=== PATIENT | male | born 1940 | race Caucasian/White ===

== ENCOUNTER → 2017-02-16 | Outpatient (CLI) | payer MEDICARE ==
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
== END | disposition home or self-care (01) ==
LOC: US 00:40 → WOUNDCARE 00:40
DX: S80.12XA Contusion of left lower leg, initial encounter (principal); E11.9 Type 2 diabetes mellitus without complications; M79.89 Other specified soft tissue disorders; I48.91 Unspecified atrial fibrillation; Z79.01 Long term (current) use of anticoagulants; Z87.891 Personal history of nicotine dependence; X58.XXXA Exposure to other specified factors, initial encounter; Y93.89 Activity, other specified; Y92.89 Other specified places as the place of occurrence of the external cause; Y99.8 Other external cause status

== ENCOUNTER 2017-07-02 01:21 | Inpatient (IN) | payer MEDICARE ==
[~2017-07-02] VITALS: Ht 190.5 cm; Wt 99.9 kg
[2017-07-02] VITALS (7 sets, daily range): BP systolic 86–162; BP diastolic 52–84
[2017-07-02 02:04] LABS: BASO # 0.1 10*3/uL (0.0-0.1); BASO % 0.8 % (0.0-1.0); EOS # 0.6 10*3/uL (0.0-0.4); EOS % 4.7 % (1.0-4.0); HEMATOCRIT 38.3 % (42.0-52.0); HEMOGLOBIN 12.6 g/dl (14.0-18.0); LYMPH # 2.4 10*3/uL (1.3-4.4); LYMPH % 18.9 % (27.0-41.0); MEAN CELL VOLUME 90.1 fl (80.0-94.0); MEAN CORPUSCULAR HGB 29.6 pg (27.0-31.0); MEAN CORPUSCULAR HGB CONC 32.9 g/dl (33.0-37.0); MEAN PLATELET VOLUME 9.2 fl (9.6-12.3); MONO # 1.3 10*3/uL (0.1-1.0); MONO % 10.2 % (3.0-9.0); NEUT # 8.2 10*3/uL (2.3-7.9); NEUT % 64.8 % (47.0-73.0); PLATELET COUNT AUTOMATED 267 10*3/uL (130-400); RED BLOOD COUNT 4.25 10*6/uL (4.50-5.90); RED CELL DISTRI WIDTH 14.2 % (0-14.5); WHITE BLOOD COUNT 12.7 10*3/uL (4.8-10.8)
[2017-07-02 02:19] LABS: ALBUMIN 3.5 gm/dl (3.1-4.5); ALKALINE PHOSPHATASE 85 U/L (45-117); BUN 21 mg/dl (7-24); CHLORIDE 110 mmol/L (98-107); CREATININE 1.18 mg/dL (0.70-1.30); POTASSIUM 3.6 mmol/L (3.5-5.1); SGOT/AST 19 IU/L (3-35); SGPT/ALT 24 U/L (12-78); SODIUM 143 mmol/L (136-145); TOTAL PROTEIN 7.5 gm/dL (6.4-8.2)
--- NOTE | 2017-07-02 03:20 | NUR ---
pt reported chest pain 2 out of 10 in left side of chest. non radiating. vss
--- NOTE | 2017-07-02 05:45 | NUR ---
A 76, admitted to , under the services of MERARI Rdz DO with a diagnosis of HYPOGLYCEMIA. Chief complaint is CONFUSION & PT. FELL AT HOME. Patient arrived via stretcher from ER. Monitor applied. Initial assessment completed. Vital signs taken and recorded. MERARI RDZ DO notified of admission to the unit. Orders received. See assessment for past medical history, medications and allergies. Patient and/or family oriented to unit. [facility]. Clothing/patient valuable form completed. MONICA IBRAHIM
[2017-07-02 05:47] LABS: BILIRUBIN NEGATIVE (NEGATIVE); BLOOD NEGATIVE (NEGATIVE); CLARITY CLEAR (CLEAR); COLOR YELLOW (YELLOW); GLUCOSE 1+ (NEGATIVE); KETONE NEGATIVE (NEGATIVE); LEUKO ESTERASE NEGATIVE (NEGATIVE); NITRITE NEGATIVE (NEGATIVE); PH 5.5 (5.0-9.0); UROBILINOGEN 0.2 E.U./dl (0.2-1.0)
[2017-07-02 05:54] LABS: RBC 0-2 rbc/hpf (0-2)
[2017-07-02] MEDS ORDERED: LEVOTHYROXINE50 MCG PO (07:54)
[2017-07-02] MEDS ORDERED: ASPIR LOW81 MG PO (07:55)
[2017-07-02] MEDS ORDERED: COREG6.25 MG PO ×2 (07:56→08:02)
[2017-07-02] MEDS ORDERED: QUINAPRIL10 M1 PO (07:56)
[2017-07-02] MEDS ORDERED: LANTUS SOL100 UNIT/1 SC ×3 (07:57→11:48)
[2017-07-02] MEDS ORDERED: HUMALOG100 UNIT/2 SQ ×3 (07:58→08:02)
[2017-07-02] MEDS ORDERED: DIGOX250 MCG PO (08:01)
[2017-07-02] MEDS ORDERED: COUMADIN7.5 M1 PO (08:04)
[2017-07-02] MEDS ORDERED: COUMADIN5 M2 PO (08:05)
[2017-07-02] MEDS ORDERED: HUMALOG100 UNIT/1 SC ×3 (11:50→11:53)
[2017-07-02 14:29] LABS: INTERNATIONAL NORM RATIO 1.9 (2.0-3.5)
--- NOTE | 2017-07-02 18:50 | NUR ---
[facility] Discharge instructions reviewed with patient/family. Patient receptive and verbalizes understanding. Follow-up care arranged. Written instructions given to patient/family. MARIELENA LEAVITT
== END 2017-07-02 18:50 | disposition home or self-care (01) | DRG 638 ==
LOC: ED 01:21 → EDHOLD 04:50 → 4E 04:59
PROVIDERS: Emergency Medicine; Family Medicine Adult Medicine; ADMIT Internal Medicine
DX: E11.649 Type 2 diabetes mellitus with hypoglycemia without coma (principal); D68.69 Other thrombophilia; E11.51 Type 2 diabetes mellitus with diabetic peripheral angiopathy without gangrene; I48.2 Chronic atrial fibrillation; E03.9 Hypothyroidism, unspecified; E78.5 Hyperlipidemia, unspecified; F10.20 Alcohol dependence, uncomplicated; I25.10 Atherosclerotic heart disease of native coronary artery without angina pectoris; Z91.018 Allergy to other foods; Z91.040 Latex allergy status; Z79.4 Long term (current) use of insulin; Z95.1 Presence of aortocoronary bypass graft; Z90.49 Acquired absence of other specified parts of digestive tract; Z83.6 Family history of other diseases of the respiratory system; Z79.82 Long term (current) use of aspirin; Z79.899 Other long term (current) drug therapy; W19.XXXA Unspecified fall, initial encounter; Y93.89 Activity, other specified; Y92.89 Other specified places as the place of occurrence of the external cause; Y99.8 Other external cause status

== ENCOUNTER 2017-12-20 19:46 | Inpatient (IN) | payer MEDICARE ==
[~2017-12-20] VITALS: Ht 190.5 cm; Wt 88.1 kg
--- NOTE | ~2017-12-20 | CON ---
[place], [place] REPORT OF CONSULTATION NAME: NORMA MAGAÑA UNIT #: [id number] ROOM: 412 DOCTOR: BHUPENDRA BRUNSON MD BIRTHDATE: [birth year] DOS: 12/21/2017 REASON FOR CONSULTATION: Bacteremia with lumbar osteomyelitis. HISTORY OF PRESENT ILLNESS: This is a 77-year-old male who presented to the ER due to a chief complaint of hypoglycemia. According to the who was at the bedside, the patient was relatively stable the whole day on the day of admission and after his dinner, he was having excessive sweating and was unresponsive. His blood glucose was low 20 and she called the EMS and the patient was able to respond minimally during all this time and after arrival to the ER with proper , he was revived. On review of his documents from [facility] [place], it was found that he had been treated with MSSA bacteremia, likely from his lumbar paraspinal abscess for 8 weeks with cefazolin 2 grams q. 8 hourly, ending on 12/10/2017 and the patient was getting this therapy through his left arm PICC line. He stayed at [place] until the completion of his therapy and then moved back to [place] on 15 of December. He was hemodynamically stable all this time. On arrival to the ER, his vitals have been stable, including his blood pressure. His labs do reveal leukocytosis of 17 on admission. Hemoglobin A1c of 9.0, elevated ESR 89. His lumbar CT spine done with contrast on 12/20/2017 shows possibility of diskitis, osteomyelitis of L3-L4 disk space. The paravertebral soft tissues within normal limits. His blood cultures on admission, one set anaerobic bottle is growing gram-positive cocci in pairs and clusters. The patient has been on vancomycin and cefepime. PAST MEDICAL HISTORY: Significant for atrial fibrillation, coronary artery disease, diabetes type 2, dyslipidemia, hypothyroidism, peripheral vascular disease. PAST SURGICAL HISTORY: Includes history of carotid endarterectomy; bilateral coronary artery stent placement; history of foot surgery, left foot; appendectomy; CABG; hand surgery and femoral popliteal bypass surgery. SOCIAL HISTORY: Former smoker, quit 20 years ago. Nonalcoholic. No illicit drug use. FAMILY HISTORY: Father had lung disease, . Mother also . ALLERGIES: NARCOTICS, does not tolerate well. HOME MEDICATIONS: Include aspirin, atorvastatin, Coreg, insulin lispro and glargine, levothyroxine, metformin and warfarin. REVIEW OF SYSTEMS: A 12-point review of systems has been done. Pertinent negative, positive has been included in HPI, rest are noncontributory. PHYSICAL EXAMINATION: [place], [place] REPORT OF CONSULTATION NAME: NORMA MAGAÑA UNIT #: [id number] ROOM: 412 DOCTOR: NANNETTE ADAMSBHUPENDRA BIRTHDATE: [birth year] VITAL SIGNS: Temperature of 97.6, pulse rate of 97, respiratory rate 18, blood pressure 128/73, oxygen saturation 99% on room air. GENERAL: The patient is alert, oriented x 3, not in acute distress. HEENT: Atraumatic, normocephalic. PERRLA, EOMI. Poor dental hygiene. No recent dental procedure done. RESPIRATORY: Air entry bilaterally equal. No wheeze or crackles. CARDIOVASCULAR: S1, S2, irregularly irregular. No murmur, rubs or gallops. ABDOMEN: Soft, nontender, nondistended. Bowel sounds present in 4 quadrants. MUSCULOSKELETAL: No back pain, no paraspinal muscle tenderness. Left knee swollen, but no fluid. Full range of motion. No tenderness. Left foot ulcer callus, healed, around 1 cm. No surrounding cellulitis. NEUROLOGIC: Grossly intact. LABS AND IMAGING: Reviewed, mentioned in HPI. ASSESSMENT: 1. Gram-positive bacteremia, likely MSSA, as seen during last admission. 2. Gram-positive bacteremia, likely source from osteomyelitis/endocarditis. PLAN: 1. At this time, discontinue vancomycin, cefepime. Continue on cefazolin 2 grams q. 8 hourly. 2. Repeat blood cultures. 3. Needs a transthoracic echo. 4. MRI of the spine with gadolinium to see if he has any spinal abscess persistently present or as it resolved. 5. The patient and the family are willing to transfer the patient to [facility] because his orthopedic care is there. Currently, I do feel that the above things can be done. His clinical exam shows more neurological deficits, may need a neurosurgical evaluation. Thank you for your consult. Yvrose Brunson MD CM:CONSTR:REPORT OF CONSULTATION 1727 12/21/17 2320 interface
[~2017-12-20 19:46] MED LIST: ASPIR LOW81 MG PO; COREG6.25 MG PO; COUMADIN5 M2 PO; COUMADIN7.5 M1 PO; DIGOX250 MCG PO; HUMALOG100 UNIT/1 SC; HUMALOG100 UNIT/2 SQ; LANTUS SOL100 UNIT/1 SC; LEVOTHYROXINE50 MCG PO; QUINAPRIL10 M1 PO
[2017-12-20 19:47] VITALS: BP 144/77
[2017-12-20] MEDS ORDERED: WARFARIN SOD5 MG PO (19:56)
[2017-12-20] MEDS ORDERED: HUMALOG100 UNIT/1 SQ (19:59)
[2017-12-20] MEDS ORDERED: METFORMIN500 MG PO (20:00)
[2017-12-20 20:29] LABS: BASO # 0.1 10*3/uL (0.0-0.1); BASO % 0.5 % (0.0-1.0); EOS # 0.5 10*3/uL (0.0-0.4); EOS % 3.1 % (1.0-4.0); HEMATOCRIT 33.7 % (42.0-52.0); HEMOGLOBIN 10.6 g/dl (14.0-18.0); LYMPH # 1.4 10*3/uL (1.3-4.4); LYMPH % 8.4 % (27.0-41.0); MEAN CELL VOLUME 89.4 fl (80.0-94.0); MEAN CORPUSCULAR HGB 28.1 pg (27.0-31.0); MEAN CORPUSCULAR HGB CONC 31.5 g/dl (33.0-37.0); MEAN PLATELET VOLUME 8.7 fl (9.6-12.3); MONO # 1.5 10*3/uL (0.1-1.0); MONO % 8.7 % (3.0-9.0); NEUT # 13.3 10*3/uL (2.3-7.9); NEUT % 78.5 % (47.0-73.0); PLATELET COUNT AUTOMATED 347 10*3/uL (130-400); RED BLOOD COUNT 3.77 10*6/uL (4.50-5.90); RED CELL DISTRI WIDTH 15.2 % (0-14.5)
[2017-12-20 20:42] VITALS: BP 135/70
[2017-12-20 20:42] LABS: INTERNATIONAL NORM RATIO 2.1 (2.0-3.5)
[2017-12-20 20:45] LABS: ALBUMIN 3.2 gm/dl (3.1-4.5); ALKALINE PHOSPHATASE 115 U/L (45-117); BUN 23 mg/dl (7-24); CHLORIDE 104 mmol/L (98-107); CREATININE 1.02 mg/dL (0.70-1.30); POTASSIUM 4.2 mmol/L (3.5-5.1); SGOT/AST 17 IU/L (3-35); SGPT/ALT 16 U/L (12-78); SODIUM 139 mmol/L (136-145); TOTAL PROTEIN 7.9 gm/dL (6.4-8.2)
[2017-12-20 20:48] LABS: TROPONIN I < 0.015 ng/ml (<0.045)
[2017-12-20 20:55] LABS: DIGOXIN 0.12 ng/ml (0.8-2.0)
[2017-12-20 21:49] VITALS: BP 134/63
[2017-12-20 22:56] VITALS: BP 128/73
[2017-12-21 00:20] VITALS: BP 140/68
[2017-12-21 01:00] VITALS: BP 129/65
[2017-12-21] MEDS ORDERED: LIPITOR10 MG PO (01:46)
[2017-12-21 03:08] LABS: BASO # 0.1 10*3/uL (0.0-0.1); BASO % 0.6 % (0.0-1.0); EOS # 0.3 10*3/uL (0.0-0.4); EOS % 3.2 % (1.0-4.0); HEMATOCRIT 31.4 % (42.0-52.0); LYMPH # 1.7 10*3/uL (1.3-4.4); LYMPH % 16.1 % (27.0-41.0); MEAN CORPUSCULAR HGB CONC 31.8 g/dl (33.0-37.0); MEAN PLATELET VOLUME 8.5 fl (9.6-12.3); MONO # 0.9 10*3/uL (0.1-1.0); MONO % 8.4 % (3.0-9.0); NEUT # 7.7 10*3/uL (2.3-7.9); NEUT % 71.1 % (47.0-73.0); PLATELET COUNT AUTOMATED 290 10*3/uL (130-400); RED BLOOD COUNT 3.57 10*6/uL (4.50-5.90); WHITE BLOOD COUNT 10.8 10*3/uL (4.8-10.8)
[2017-12-21 03:17] LABS: INTERNATIONAL NORM RATIO 2.2 (2.0-3.5)
[2017-12-21 03:25] LABS: ALKALINE PHOSPHATASE 105 U/L (45-117); CHLORIDE 105 mmol/L (98-107); CREATININE 0.97 mg/dL (0.70-1.30); PHOSPHOROUS 4.1 mg/dL (2.5-4.9); POTASSIUM 4.2 mmol/L (3.5-5.1); SODIUM 139 mmol/L (136-145)
[2017-12-21 04:19] LABS: BUN 23 mg/dl (7-24); SGOT/AST 20 IU/L (3-35); SGPT/ALT 17 U/L (12-78); TRIGLYCERIDES 68 mg/dl (<150); VLDL CHOLESTEROL 14 mg/dL (6-40)
[2017-12-21 04:28] LABS: CHOLESTEROL 87 mg/dL (<200); HDL CHOLESTEROL 37 mg/dl (40-60); LDL CHOLESTEROL 36 mg/dL (9-159)
[2017-12-21 08:00] VITALS: BP 132/60
[2017-12-21 08:54] LABS: VITAMIN D, 25-HYDROXY 23.1 ng/mL (30-100)
[2017-12-21 12:00] VITALS: BP 121/53
[2017-12-21 16:00] VITALS: BP 134/69
[2017-12-21 20:00] VITALS: BP 162/92
== END 2017-12-21 21:15 | disposition short-term general hospital (02) | DRG 872 ==
LOC: ED 19:46 → EDHOLD 20:54 → ED 20:54 → 4E 23:25 → EDHOLD 23:25 → 4E 23:38
PROVIDERS: Internal Medicine Nephrology; Student in an Organized Health Care Education/Training Program
DX: A41.9 Sepsis, unspecified organism (principal); E11.51 Type 2 diabetes mellitus with diabetic peripheral angiopathy without gangrene; E11.649 Type 2 diabetes mellitus with hypoglycemia without coma; M46.26 Osteomyelitis of vertebra, lumbar region; I48.91 Unspecified atrial fibrillation; E78.5 Hyperlipidemia, unspecified; E03.9 Hypothyroidism, unspecified; M46.40 Discitis, unspecified, site unspecified; M46.46 Discitis, unspecified, lumbar region; E11.69 Type 2 diabetes mellitus with other specified complication; I25.10 Atherosclerotic heart disease of native coronary artery without angina pectoris; Z95.5 Presence of coronary angioplasty implant and graft; Z90.49 Acquired absence of other specified parts of digestive tract; Z95.1 Presence of aortocoronary bypass graft; Z79.899 Other long term (current) drug therapy; Z87.891 Personal history of nicotine dependence; Z83.6 Family history of other diseases of the respiratory system; Z88.6 Allergy status to analgesic agent; Z79.82 Long term (current) use of aspirin

== ENCOUNTER 2018-01-09 22:36 | Inpatient (IN) | payer MEDICARE ==
[~2018-01-09] VITALS: Ht 193 cm; Wt 108.1 kg
[~2018-01-09 22:36] MED LIST changes: +HUMALOG100 UNIT/1 SQ; +LIPITOR10 MG PO; +METFORMIN500 MG PO; +WARFARIN SOD5 MG PO
[2018-01-09 22:59] VITALS: BP 156/63
[2018-01-09 23:41] LABS: BASO # 0.1 10*3/uL (0.0-0.1); BASO % 0.8 % (0.0-1.0); EOS # 0.4 10*3/uL (0.0-0.4); EOS % 3.2 % (1.0-4.0); LYMPH % 9.1 % (27.0-41.0); MEAN CORPUSCULAR HGB 28.2 pg (27.0-31.0); MEAN CORPUSCULAR HGB CONC 31.3 g/dl (33.0-37.0); MEAN PLATELET VOLUME 8.7 fl (9.6-12.3); MONO # 0.8 10*3/uL (0.1-1.0); MONO % 7.4 % (3.0-9.0); NEUT # 8.5 10*3/uL (2.3-7.9); NEUT % 79.1 % (47.0-73.0); RED BLOOD COUNT 3.37 10*6/uL (4.50-5.90); RED CELL DISTRI WIDTH 17.2 % (0-14.5); WHITE BLOOD COUNT 10.8 10*3/uL (4.8-10.8)
[2018-01-09 23:42] LABS: HEMATOCRIT 30.4 % (42.0-52.0); HEMOGLOBIN 9.5 g/dl (14.0-18.0); MEAN CELL VOLUME 90.2 fl (80.0-94.0); PLATELET COUNT AUTOMATED 340 10*3/uL (130-400)
[2018-01-10] LABS: ALBUMIN 2.7 gm/dl (3.1-4.5); ALKALINE PHOSPHATASE 97 U/L (45-117); BUN 12 mg/dl (7-24); CHLORIDE 104 mmol/L (98-107); SGOT/AST 15 IU/L (3-35); SGPT/ALT 12 U/L (12-78); SODIUM 140 mmol/L (136-145); TOTAL PROTEIN 7.2 gm/dL (6.4-8.2)
[2018-01-10 00:01] LABS: TROPONIN I < 0.015 ng/ml (<0.045)
[2018-01-10 00:22] VITALS: BP 162/72
[2018-01-10 01:00] VITALS: BP 159/66
[2018-01-10 04:26] LABS: BASO # 0.1 10*3/uL (0.0-0.1); BASO % 0.8 % (0.0-1.0); EOS # 0.6 10*3/uL (0.0-0.4); EOS % 6.3 % (1.0-4.0); HEMATOCRIT 30.7 % (42.0-52.0); HEMOGLOBIN 9.4 g/dl (14.0-18.0); LYMPH # 1.9 10*3/uL (1.3-4.4); LYMPH % 20.4 % (27.0-41.0); MEAN CELL VOLUME 91.4 fl (80.0-94.0); MEAN CORPUSCULAR HGB CONC 30.6 g/dl (33.0-37.0); MEAN PLATELET VOLUME 8.7 fl (9.6-12.3); MONO % 10.5 % (3.0-9.0); NEUT # 5.6 10*3/uL (2.3-7.9); NEUT % 61.8 % (47.0-73.0); PLATELET COUNT AUTOMATED 321 10*3/uL (130-400); RED BLOOD COUNT 3.36 10*6/uL (4.50-5.90); RED CELL DISTRI WIDTH 17.2 % (0-14.5); WHITE BLOOD COUNT 9.1 10*3/uL (4.8-10.8)
[2018-01-10 04:37] LABS: INTERNATIONAL NORM RATIO 1.4 (2.0-3.5)
[2018-01-10 04:54] LABS: BUN 12 mg/dl (7-24); CHLORIDE 105 mmol/L (98-107); CREATININE 1.07 mg/dL (0.70-1.30); PHOSPHOROUS 2.7 mg/dL (2.5-4.9); POTASSIUM 4.1 mmol/L (3.5-5.1); SODIUM 139 mmol/L (136-145)
[2018-01-10 08:00] VITALS: BP 142/85
[2018-01-10] MEDS ORDERED: HUMALOG100 UNIT/1 SQ (12:16)
[2018-01-10] MEDS ORDERED: COUMADIN7.5 M1 PO (12:16)
[2018-01-10] MEDS ORDERED: NAFCILLIN2 GM IV (12:23)
== END 2018-01-10 14:19 | disposition home or self-care (01) | DRG 637 ==
LOC: ED 22:36 → EDHOLD 01-10 00:30 → 5E 01-10 00:46
PROVIDERS: Internal Medicine Nephrology; Nurse Practitioner Family
PROC: 02HV33Z Insertion of Infusion Device into Superior Vena Cava, Percutaneous Approach (ICD-10-PCS; principal; 2018-01-10)
DX: E11.649 Type 2 diabetes mellitus with hypoglycemia without coma (principal); E43 Unspecified severe protein-calorie malnutrition; E87.2 Acidosis; B95.61 Methicillin susceptible Staphylococcus aureus infection as the cause of diseases classified elsewhere; I48.91 Unspecified atrial fibrillation; M46.26 Osteomyelitis of vertebra, lumbar region; R78.81 Bacteremia; E11.51 Type 2 diabetes mellitus with diabetic peripheral angiopathy without gangrene; D64.9 Anemia, unspecified; I25.810 Atherosclerosis of coronary artery bypass graft(s) without angina pectoris; M86.68 Other chronic osteomyelitis, other site; E78.5 Hyperlipidemia, unspecified; D72.810 Lymphocytopenia; E66.3 Overweight; E11.69 Type 2 diabetes mellitus with other specified complication; E03.9 Hypothyroidism, unspecified; Z95.5 Presence of coronary angioplasty implant and graft; Z90.89 Acquired absence of other organs; Z95.1 Presence of aortocoronary bypass graft; Z87.891 Personal history of nicotine dependence; Z88.8 Allergy status to other drugs, medicaments and biological substances; Z84.89 Family history of other specified conditions; Z79.82 Long term (current) use of aspirin; Z79.899 Other long term (current) drug therapy; Z79.4 Long term (current) use of insulin; Z68.29 Body mass index [BMI] 29.0-29.9, adult

== ENCOUNTER 2018-06-13 02:18 | Inpatient (IN) | payer MEDICARE ==
[~2018-06-13] VITALS: Ht 190.5 cm; Wt 83.9 kg
--- NOTE | ~2018-06-13 | ST ---
[place], [place] EXERCISE STRESS TEST REPORT NAME: NORMA MAGAÑA UNIT #: [id number] ROOM: 524 DOCTOR: SONIA ADAMS,HAO BIRTHDATE: [birth year] DOS: 06/13/2018 LEXISCAN STRESS TEST REASON FOR TEST: Evaluation of chest pain. REFERRING PHYSICIAN: Dr. Jones. PHYSICAL EXAMINATION NECK: Supple. LUNGS: Clear anteriorly. HEART: Irregular. PROTOCOL: Lexiscan protocol. Maximum heart rate 130. Peak blood pressure 142/54. SYMPTOMS: The patient is chest pain free. EKG: Resting EKG showed atrial fibrillation with right bundle branch block with occasional tachycardia. Stress EKG showed no ischemia with underlying atrial fibrillation and right bundle branch block. CONCLUSION: Clinically, the patient is chest pain free. EKG, no new ischemia compared to baseline, underlying atrial fibrillation. POST-STRESS COMPLICATIONS: None. The patient received a total of 0.4 mg Lexiscan. HAO SCOTT MD CM:STRESS:EXERCISE STRESS TEST REPORT 1032 0127 HAO SCOTT MD
--- NOTE | ~2018-06-13 | EKG ---
[place], [place] ELECTROCARDIOGRAM REPORT NAME: NORMA MAGAÑA UNIT #: [id number] ROOM: DOCTOR: EPIPHTRA DRAFT REPORT BIRTHDATE: [birth year] [facility] Test Date: 2018-06-13 Test Time: 02:24:02 Pat Name: NORMA MAGAÑA Department: Room: Gender: [employer] Developer: WILY : 1940 Requested By: DAVID MIGUEL Order Number: [id number] Reading MD: Measurements Intervals [place] Rate: 89 P: [place]: QRS: 54 QRSD: 142 T: -37 QT: 378 QTc: 460 Interpretive Statements Atrial fibrillation Right bundle branch block ST depression, consider ischemia, diffuse lds No previous ECG available for comparison CM:EKGRPT:ELECTROCARDIOGRAM REPORT 0224 2337 DAVID CUMMINGS DRAFT REPORT DAVID MIGUEL DO
--- NOTE | ~2018-06-13 | CON ---
[place], [place] REPORT OF CONSULTATION NAME: NORMA MAGAÑA UNIT #: [id number] ROOM: 524 DOCTOR: HAO SCOTT MD BIRTHDATE: [birth year] DOS: 06/13/2018 CARDIOLOGY CONSULT REASON FOR CONSULTATION: Chest pain. CLINICAL HISTORY: The patient is a 77-year-old gentleman with a history of CAD, valvular heart disease, atrial fibrillation, was brought to the Emergency Room for "unresponsiveness." Recently, the blood sugar has been uncontrolled. He woke up with a headache and midsternal chest pain at rest. His chest pain was resolved by the time the EMS arrived to the home and brought him to the Emergency Room. He is having this pain even in the sleep also. He describes it as a sharp pain, uncomfortable, no radiation, no associated nausea, diaphoresis, or shortness of breath. He has a history of bypass surgery a long time ago. He has extensive vascular history, atrial fibrillation and valvular heart disease. Cardiology was consulted for further recommendations. He also is having some burning sensation while urination, but no fever and chills. No nausea, no headache, no dizziness. He denies any shortness of breath, PND or orthopnea. No nausea, vomiting, diarrhea. No tingling, numbness or weakness. Part of the history was obtained from his previous medical records. REVIEW OF SYSTEMS: Review of the 10 system negative except as mentioned above. At the time of examination, the patient was stable and denies any chest pain or shortness of breath. PAST MEDICAL HISTORY: 1. Coronary artery disease, status post 2-vessel bypass in 1997. 2. Chronic atrial fibrillation, on Coumadin. 3. Peripheral vascular disease, status post left fem-pop bypass in early , also status post bilateral carotid endarterectomy details unknown. 4. Hypertension. 5. Diabetes type 2. 6. Dyslipidemia. 7. Hypothyroidism. 8. Right bundle branch block. 9. Valvular heart disease. PAST SURGICAL HISTORY: 1. History of bypass surgery, history of left femoropopliteal bypass. 2. Bilateral carotid endarterectomies. 3. Foot surgery and hand surgery. SOCIAL HISTORY: The patient is a former smoker, quit smoking about 20 years ago. Social alcohol. Does not use illicit drugs. FAMILY HISTORY: Nil contributory due to his history. Father is from lung issues. Mother . ALLERGIES: THE PATIENT IS ALLERGIC TO OPIATE AGONISTS. [place], [place] REPORT OF CONSULTATION NAME: NORMA MAGAÑA UNIT #: [id number] ROOM: 524 DOCTOR: SONIA ADAMS,HAO BIRTHDATE: [birth year] HOME MEDICATIONS: Reviewed. The pertinent cardiac medications include aspirin, Lipitor, Coreg, digoxin, and warfarin. REVIEW OF THE DIAGNOSTIC TESTS: The patient's EKG rhythm strips, imaging studies and labs are reviewed. Cardiac enzymes are negative. WBC count 6.9 thousand, hemoglobin 8.3, platelet 146,000. Potassium 3.8. Creatinine 1.43. A1c 9. INR 2.3. Total cholesterol 120, LDL 45, HDL 30. PHYSICAL EXAMINATION: VITAL SIGNS: Blood pressure 150/54, pulse 87, respirations 18, weight 83.9 kilos, BMI 23. GENERAL: Alert, comfortable, in no acute distress. HEAD AND NECK: Supple. No distended neck veins. No carotid bruit. CHEST: Symmetrical, nontender. ENT: Tongue was moist and pharynx clear. LUNGS: Clear to auscultation bilaterally. HEART: Regular rhythm. No S3. Grade 1-2/6 systolic murmur. ABDOMEN: Benign, nontender. Bowel sounds normal. EXTREMITIES: Showed no edema. Distal pulses are palpable. SKIN: Warm and dry. No cyanosis, no clubbing. RECTAL: Deferred. GENITOURINARY: Deferred. NEUROLOGIC: The patient is alert and oriented. No focal neurologic deficit. IMPRESSION: 1. Chest pain, atypical, myocardial infarction ruled out. 2. Coronary artery disease, status post bypass x 2 in 1997. Last stress test, I can see was in 2014. 3. Chronic atrial fibrillation, on Coumadin with INR 2.3. 4. Peripheral vascular disease status post left femoropopliteal bypass surgery and bilateral carotid endarterectomies. 5. Anemia. 6. Right bundle branch block. 7. Valvular heart disease. 8. Chronic kidney disease. RECOMMENDATIONS: 1. Lexiscan stress test today due to his chest pains and coronary artery disease. 2. Continue aspirin, beta blockers, statins and Coumadin. 3. The patient arranged to follow up by his automotive technology instructor per previous records, this is Dr. Diego Longo in [place], [place] and also Vascular Surgery as needed. 4. If the stress test is unremarkable, Cardiology will sign off. 5. There is no family at bedside at the time of my examination. 6. Continue to monitor heart rate, blood pressures and hemoglobin as well as renal function. [place], [place] REPORT OF CONSULTATION NAME: NORMA MAGAÑA UNIT #: [id number] ROOM: 524 DOCTOR: HAO SCOTT MD BIRTHDATE: [birth year] HAO SCOTT MD CM:CONSTR:REPORT OF CONSULTATION 1227 06/14/18 0233 interface
[~2018-06-13 02:18] MED LIST changes: +NAFCILLIN2 GM IV
[2018-06-13 02:24] VITALS: BP 124/70
[2018-06-13] MEDS ORDERED: FLOMAX0.4 MG PO (02:47)
[2018-06-13] MEDS ORDERED: COREG3.125 MG PO (02:47)
[2018-06-13] MEDS ORDERED: LEVOTHYROXINE50 MCG PO (02:47)
[2018-06-13] MEDS ORDERED: DIGOX125 MCG PO (02:48)
[2018-06-13] MEDS ORDERED: HUMALOG100 UNIT/2 SQ ×3 (02:48→04:30)
[2018-06-13] MEDS ORDERED: LANTUS SOL100 UNIT/1 SQ (02:48)
[2018-06-13] MEDS ORDERED: LIPITOR10 MG PO (02:49)
[2018-06-13 02:50] LABS: BILIRUBIN NEGATIVE (NEGATIVE); BLOOD 1+ (NEGATIVE); CLARITY CLOUDY (CLEAR); COLOR YELLOW (YELLOW); GLUCOSE NEGATIVE (NEGATIVE); KETONE NEGATIVE (NEGATIVE); LEUKO ESTERASE 3+ (NEGATIVE); NITRITE NEGATIVE (NEGATIVE); SPECIFIC GRAVITY 1.015 (1.005-1.030); UROBILINOGEN 0.2 E.U./dl (0.2-1.0)
[2018-06-13] MEDS ORDERED: WARFARIN SOD5 MG PO (02:50)
[2018-06-13 02:52] LABS: BASO # 0.1 10*3/uL (0.0-0.1); BASO % 0.7 % (0.0-1.0); EOS # 0.3 10*3/uL (0.0-0.4); EOS % 4.2 % (1.0-4.0); HEMATOCRIT 26.4 % (42.0-52.0); HEMOGLOBIN 8.3 g/dl (14.0-18.0); LYMPH # 1.1 10*3/uL (1.3-4.4); LYMPH % 16.6 % (27.0-41.0); MEAN CELL VOLUME 85.7 fl (80.0-94.0); MEAN CORPUSCULAR HGB 26.9 pg (27.0-31.0); MEAN CORPUSCULAR HGB CONC 31.4 g/dl (33.0-37.0); MEAN PLATELET VOLUME 9.8 fl (9.6-12.3); MONO # 1.1 10*3/uL (0.1-1.0); MONO % 15.9 % (3.0-9.0); NEUT # 4.3 10*3/uL (2.3-7.9); NEUT % 62.3 % (47.0-73.0); PLATELET COUNT AUTOMATED 144 10*3/uL (130-400); RED BLOOD COUNT 3.08 10*6/uL (4.50-5.90); RED CELL DISTRI WIDTH 14.7 % (0-14.5); WHITE BLOOD COUNT 6.9 10*3/uL (4.8-10.8)
[2018-06-13 03:02] LABS: INTERNATIONAL NORM RATIO 2.3 (2.0-3.5)
[2018-06-13 03:03] VITALS: BP 122/77
[2018-06-13 03:03] LABS: BACTERIA 1+; WBC TNTC wbc/hpf (0-5); YEAST TRACE
[2018-06-13 03:10] LABS: ALKALINE PHOSPHATASE 107 U/L (45-117); BUN 26 mg/dl (7-24); CHLORIDE 110 mmol/L (98-107); CREATININE 1.43 mg/dL (0.70-1.30); POTASSIUM 3.8 mmol/L (3.5-5.1); SGOT/AST 37 IU/L (3-35); SGPT/ALT 54 U/L (12-78); SODIUM 142 mmol/L (136-145); TOTAL PROTEIN 7.3 gm/dL (6.4-8.2)
[2018-06-13 03:16] LABS: TROPONIN I < 0.015 ng/ml (<0.045)
[2018-06-13 03:27] VITALS: BP 146/51
[2018-06-13 04:00] VITALS: BP 111/47
[2018-06-13 08:00] VITALS: BP 153/54
[2018-06-13 16:00] VITALS: BP 129/65
== END 2018-06-13 19:00 | disposition home or self-care (01) | DRG 637 ==
LOC: ED 02:18 → 5E 03:37 → EDHOLD 03:37 → 5E 03:47
PROVIDERS: Emergency Medicine
PROC: 4A02XM4 Measurement of Cardiac Total Activity, External Approach (ICD-10-PCS; principal; 2018-06-13)
PROC: 3E033HZ Introduction of Radioactive Substance into Peripheral Vein, Percutaneous Approach (ICD-10-PCS; principal; 2018-06-13)
DX: E11.649 Type 2 diabetes mellitus with hypoglycemia without coma (principal); E43 Unspecified severe protein-calorie malnutrition; N30.00 Acute cystitis without hematuria; I38 Endocarditis, valve unspecified; M86.68 Other chronic osteomyelitis, other site; R07.9 Chest pain, unspecified; N17.0 Acute kidney failure with tubular necrosis; E11.69 Type 2 diabetes mellitus with other specified complication; E11.22 Type 2 diabetes mellitus with diabetic chronic kidney disease; R33.8 Other retention of urine; I12.9 Hypertensive chronic kidney disease with stage 1 through stage 4 chronic kidney disease, or unspecified chronic kidney disease; I25.118 Atherosclerotic heart disease of native coronary artery with other forms of angina pectoris; N40.1 Benign prostatic hyperplasia with lower urinary tract symptoms; D64.9 Anemia, unspecified; E87.8 Other disorders of electrolyte and fluid balance, not elsewhere classified; E55.9 Vitamin D deficiency, unspecified; I45.10 Unspecified right bundle-branch block; I48.2 Chronic atrial fibrillation; E11.51 Type 2 diabetes mellitus with diabetic peripheral angiopathy without gangrene; E78.5 Hyperlipidemia, unspecified; E03.9 Hypothyroidism, unspecified; Z88.5 Allergy status to narcotic agent; Z95.1 Presence of aortocoronary bypass graft; Z79.82 Long term (current) use of aspirin; Z79.01 Long term (current) use of anticoagulants; Z95.4 Presence of other heart-valve replacement; Z79.4 Long term (current) use of insulin; Z95.5 Presence of coronary angioplasty implant and graft; Z90.49 Acquired absence of other specified parts of digestive tract; Z87.891 Personal history of nicotine dependence; Z83.6 Family history of other diseases of the respiratory system; I25.2 Old myocardial infarction; Z68.23 Body mass index [BMI] 23.0-23.9, adult

== ENCOUNTER 2018-12-12 13:06 | Emergency (ER) | payer MEDICARE ==
[~2018-12-12] VITALS: Ht 190.5 cm; Wt 78.9 kg
[~2018-12-12 13:06] MED LIST changes: +COREG3.125 MG PO; +Coumadin7.5 MG PO; +DIGOX125 MCG PO; +FLOMAX0.4 MG PO; +GLUCOPHAGE500 M1 PO; +LANTUS SOL100 UNIT/1 SQ; +MERREM IV1 GM IV; +METOPROLOL25 MG PO; +ZYVOX600 MG PO
[2018-12-12 15:41] LABS: BASO # 0.1 10*3/uL (0.0-0.1); BASO % 1.3 % (0.0-1.0); EOS # 0.6 10*3/uL (0.0-0.4); EOS % 5.7 % (1.0-4.0); HEMOGLOBIN 10.3 g/dl (14.0-18.0); LYMPH # 3.9 10*3/uL (1.3-4.4); LYMPH % 35.6 % (27.0-41.0); MEAN CELL VOLUME 90.9 fl (80.0-94.0); MEAN CORPUSCULAR HGB 28.4 pg (27.0-31.0); MEAN CORPUSCULAR HGB CONC 31.2 g/dl (33.0-37.0); MEAN PLATELET VOLUME 8.9 fl (9.6-12.3); MONO # 1.2 10*3/uL (0.1-1.0); MONO % 10.6 % (3.0-9.0); NEUT # 5.1 10*3/uL (2.3-7.9); NEUT % 46.3 % (47.0-73.0); PLATELET COUNT AUTOMATED 408 10*3/uL (130-400); RED BLOOD COUNT 3.63 10*6/uL (4.50-5.90); RED CELL DISTRI WIDTH 17.2 % (0-14.5); WHITE BLOOD COUNT 11.1 10*3/uL (4.8-10.8)
[2018-12-12 15:53] LABS: ALBUMIN 3.1 gm/dl (3.1-4.5); CREATININE 1.74 mg/dL (0.70-1.30); POTASSIUM 5.2 mmol/L (3.5-5.1); TOTAL PROTEIN 7.9 gm/dL (6.4-8.2)
== END 2018-12-12 16:59 | disposition home or self-care (01) ==
LOC: ED 13:06
PROVIDERS: Internal Medicine
DX: E87.5 Hyperkalemia (principal); I48.91 Unspecified atrial fibrillation; E11.9 Type 2 diabetes mellitus without complications; E03.9 Hypothyroidism, unspecified; I25.2 Old myocardial infarction; M86.9 Osteomyelitis, unspecified; Z79.899 Other long term (current) drug therapy; Z79.82 Long term (current) use of aspirin; Z79.01 Long term (current) use of anticoagulants; Z79.4 Long term (current) use of insulin; Z88.6 Allergy status to analgesic agent; Z87.891 Personal history of nicotine dependence

== ENCOUNTER → 2019-04-24 | Day surgery (SDC) | payer MEDICARE ==
[~2019-04-24] VITALS: Ht 190.5 cm; Wt 85.3 kg
--- NOTE | ~2019-04-24 | O ---
[place], [place] OPERATIVE NOTE [id number] UNIT #: [id number] ROOM: DOCTOR: EBONY REYNA MD BIRTHDATE: [birth year] DOS: 04/24/2019 PREOPERATIVE DIAGNOSIS: Cataract, left eye. POSTOPERATIVE DIAGNOSIS: Cataract, left eye. OPERATION: Extracapsular cataract extraction by phacoemulsification with posterior chamber intraocular lens implantation, left eye. ANESTHESIA: Monitored standby. OPERATIVE FINDINGS AND PROCEDURE: A 2% Xylocaine topical anesthetic gel was applied to the eye in the preop area. The patient was taken to the operating room and prepped and draped in the standard fashion for sterile intraocular surgery. A time out procedure was performed verifying correct patient, correct site and corrects lens with Manoj Reyna M.D. The operating microscope was swung into position and the lid speculum was inserted. Using a Patrizia paracentesis blade, a paracentesis was made through clear cornea. A mixture of preservative-free lidocaine 4% and preservative-free epinephrine 1:1000 in balanced salt solution was injected into the anterior chamber. Viscoelastic was used to fill the anterior chamber. Using a metal keratome a 2.4 mm self-sealing clear corneal cataract incision was made temporally at the limbus. Using a pre-bent 25 gauge cystotome needle, a standard continuous curvilinear capsulorrhexis was performed. The anterior capsule was removed with forceps. The lens nucleus was hydrodissected and phacoemulsified in the posterior chamber. Cortical material was removed with the irrigation aspiration hand piece and the posterior capsule was then polished with a curet under irrigation. The posterior chamber and capsular bag were filled with viscoelastic. A posterior chamber intraocular lens manufactured by: [id number] and 18.5 diopters in strength were then inserted into the posterior chamber and within the capsular bag using the lens cartridge and injector system. Viscoelastic was removed using the irrigation aspiration handpiece. The anterior chamber was filled with balanced salt solution through the paracentesis. Both the paracentesis site and cataract incisions were hydrated with BSS and verified to be water-tight and self-sealing. Cefuroxime 1 mg/0.1 mL was injected into the anterior chamber through the paracentesis site. The incision checked to be water-tight using a Weck-Devika sponge. The integrity of the cataract wound and ocular tension were checked. Lid speculum and drapes were removed. The patient was transferred from the operating room to the recovery room in satisfactory condition. [place], [place] OPERATIVE NOTE NAME: GÓMEZNORMA Bowie UNIT #: [id number] ROOM: DOCTOR: EBONY REYNA MD BIRTHDATE: [birth year] EBONY REYNA MD CM:OPRECORD:OPERATIVE NOTE 0956 1024 EBONY REYNA MD 04/24/19 1024 interface
[2019-04-24 08:20] VITALS: BP 130/58
[2019-04-24 09:18] VITALS: BP 120/46
[2019-04-24 09:35] VITALS: BP 135/78
[2019-04-24 09:50] VITALS: BP 124/61
== END | disposition home or self-care (01) ==
LOC: SDC 04-18 09:30
DX: H25.12 Age-related nuclear cataract, left eye (principal); I25.10 Atherosclerotic heart disease of native coronary artery without angina pectoris; I48.91 Unspecified atrial fibrillation; E11.9 Type 2 diabetes mellitus without complications; E03.9 Hypothyroidism, unspecified; I25.2 Old myocardial infarction; Z98.890 Other specified postprocedural states; Z95.5 Presence of coronary angioplasty implant and graft; Z79.899 Other long term (current) drug therapy; Z88.8 Allergy status to other drugs, medicaments and biological substances; Z83.3 Family history of diabetes mellitus

== ENCOUNTER → 2019-07-24 | Day surgery (SDC) | payer MEDICARE ==
[~2019-07-24] VITALS: Ht 190.5 cm; Wt 88.0 kg
[~2019-07-24] MED LIST changes: +ZOLOFT25 MG PO
--- NOTE | ~2019-07-24 | O ---
[place], [place] OPERATIVE NOTE NAME: NORMA MAGAÑA [facility] #: [id number] UNIT #: [id number] ROOM: DOCTOR: EBONY REYNA MD BIRTHDATE: [birth year] DOS: 07/24/2019 PREOPERATIVE DIAGNOSIS: Cataract, right eye. POSTOPERATIVE DIAGNOSIS: Cataract, right eye. OPERATION: Extracapsular cataract extraction by phacoemulsification with posterior chamber intraocular lens implantation, right eye. ANESTHESIA: Monitored standby. INTRAOCULAR LENS: Orville [id number], and 19.0 diopters, right eye. OPERATIVE FINDINGS AND PROCEDURE: 2% Xylocaine topical anesthetic gel was applied to the eye in the preop area. The patient was taken to the operating room and prepped and draped in the standard fashion for sterile intraocular surgery. A time out procedure was performed verifying correct patient, correct site and corrects lens with Manoj Reyna M.D. The operating microscope was swung into position and the lid speculum was inserted. Using a Patrizia paracentesis blade, a paracentesis was made through clear cornea. Viscoelastic was used to fill the anterior chamber. Using a metal keratome a 2.4 mm self-sealing clear corneal cataract incision was made temporally at the limbus. Using a pre-bent 25 gauge cystotome needle, a standard continuous curvilinear capsulorrhexis was performed. The anterior capsule was removed with forceps. The lens nucleus was hydrodissected and phacoemulsified in the posterior chamber. Cortical material was removed with the irrigation aspiration hand piece and the posterior capsule was then polished with a curet under irrigation. The posterior chamber and capsular bag were filled with viscoelastic. A posterior chamber intraocular lens manufactured by: [place]ville [id number], and 19.0 diopters in strength were then inserted into the posterior chamber and within the capsular bag using the lens cartridge and injector system. Viscoelastic was removed using the irrigation aspiration handpiece. The anterior chamber was filled with balanced salt solution through the paracentesis. Both the paracentesis site and cataract incisions were hydrated with BSS and verified to be water-tight and self-sealing. Cefuroxime 1 mg/0.1 mL was injected into the anterior chamber through the paracentesis site. The incision checked to be water-tight using a Weck-Devika sponge. The integrity of the cataract wound and ocular tension were checked. Lid speculum and drapes were removed. The patient was transferred from the operating room to the recovery room in satisfactory condition. [place], [place] OPERATIVE NOTE NAME: GÓMEZNORMA Bowie UNIT #: [id number] ROOM: DOCTOR: EBONY REYNA MD BIRTHDATE: [birth year] EBONY REYNA MD CM:OPRECORD:OPERATIVE NOTE 8 1 EBONY REYNA MD 07/24/1943 interface
[2019-07-24 07:40] VITALS: BP 113/54
[2019-07-24 09:10] VITALS: BP 128/66
[2019-07-24 09:25] VITALS: BP 102/64
[2019-07-24 09:37] VITALS: BP 125/58
== END | disposition home or self-care (01) ==
LOC: SDC 07-18 09:30
DX: H25.11 Age-related nuclear cataract, right eye (principal); I10 Essential (primary) hypertension; I25.10 Atherosclerotic heart disease of native coronary artery without angina pectoris; I48.91 Unspecified atrial fibrillation; E78.00 Pure hypercholesterolemia, unspecified; E78.5 Hyperlipidemia, unspecified; E11.36 Type 2 diabetes mellitus with diabetic cataract; F41.9 Anxiety disorder, unspecified; F32.9 Major depressive disorder, single episode, unspecified; I25.2 Old myocardial infarction; Z95.5 Presence of coronary angioplasty implant and graft; Z98.890 Other specified postprocedural states; Z79.899 Other long term (current) drug therapy; Z83.3 Family history of diabetes mellitus; Z79.4 Long term (current) use of insulin

== ENCOUNTER → 2021-04-08 | Outpatient (CLI) | payer MEDICARE ==
[~2021-04-08] MED LIST changes: +CRESTOR10 M1 PO; +NEURONTIN100 MG PO; +VITAMIN B122500 MCG PO; +VITAMIN D325 MCG PO
== END | disposition home or self-care (01) ==
LOC: LAB 14:01
PROVIDERS: ATTEND Surgery
DX: Z01.812 Encounter for preprocedural laboratory examination (principal); Z20.822 Contact with and (suspected) exposure to COVID-19

== ENCOUNTER → 2021-04-12 | Day surgery (SDC) | payer MEDICARE ==
[~2021-04-12] VITALS: Ht 190.5 cm; Wt 95.3 kg
[2021-04-12 07:09] VITALS: BP 137/77
[2021-04-12 07:45] VITALS: BP 92/58
[2021-04-12 08:00] VITALS: BP 102/55
[2021-04-12 08:15] VITALS: BP 114/78
== END | disposition home or self-care (01) ==
LOC: SDC 04-01 08:45
PROVIDERS: ATTEND Surgery
DX: K62.5 Hemorrhage of anus and rectum (principal); K57.30 Diverticulosis of large intestine without perforation or abscess without bleeding; I25.2 Old myocardial infarction; I25.10 Atherosclerotic heart disease of native coronary artery without angina pectoris; E10.51 Type 1 diabetes mellitus with diabetic peripheral angiopathy without gangrene; I48.91 Unspecified atrial fibrillation; E03.9 Hypothyroidism, unspecified; Z95.5 Presence of coronary angioplasty implant and graft; Z79.899 Other long term (current) drug therapy

== ENCOUNTER 2021-10-19 13:25 | Emergency (ER) | payer MEDICARE ==
[~2021-10-19] VITALS: Ht 190.5 cm; Wt 95.3 kg
[~2021-10-19 13:25] MED LIST changes: +CIPRO500 MG PO; +SODIUM BICARBO650 MG PO
[2021-10-19 13:57] LABS: BASO % 0.6 % (0.0-1.0); EOS # 0.5 10*3/uL (0.0-0.4); EOS % 6.8 % (1.0-4.0); HEMATOCRIT 29.3 % (42.0-52.0); LYMPH # 1.4 10*3/uL (1.3-4.4); LYMPH % 18.9 % (27.0-41.0); MEAN CELL VOLUME 96.1 fl (80.0-94.0); MEAN CORPUSCULAR HGB 29.5 pg (27.0-31.0); MEAN CORPUSCULAR HGB CONC 30.7 g/dl (33.0-37.0); MEAN PLATELET VOLUME 8.9 fl (9.6-12.3); MONO # 0.5 10*3/uL (0.1-1.0); MONO % 7.1 % (3.0-9.0); NEUT # 4.8 10*3/uL (2.3-7.9); NEUT % 66.2 % (47.0-73.0); PLATELET COUNT AUTOMATED 279 10*3/uL (130-400); RED BLOOD COUNT 3.05 10*6/uL (4.50-5.90); RED CELL DISTRI WIDTH 13.9 % (0-14.5); WHITE BLOOD COUNT 7.2 10*3/uL (4.8-10.8)
[2021-10-19 14:13] LABS: ACT PARTIAL THROMBO TIME 36.5 SECONDS (20.0-32.1); INTERNATIONAL NORM RATIO 1.7 (2.0-3.5)
[2021-10-19 14:20] LABS: ALBUMIN 2.4 gm/dl (3.1-4.5); CREATININE 3.44 mg/dL (0.70-1.30); POTASSIUM 3.9 mmol/L (3.5-5.1); TOTAL PROTEIN 7.5 gm/dL (6.4-8.2)
== END 2021-10-19 17:38 | disposition home or self-care (01) ==
LOC: ED 13:25
PROVIDERS: Emergency Medicine
DX: N18.9 Chronic kidney disease, unspecified (principal); Z87.891 Personal history of nicotine dependence; Z98.890 Other specified postprocedural states; Z95.1 Presence of aortocoronary bypass graft; Z90.49 Acquired absence of other specified parts of digestive tract; Z79.899 Other long term (current) drug therapy; Z88.6 Allergy status to analgesic agent

== ENCOUNTER → 2022-02-10 | Outpatient (CLI) | payer MEDICARE ==
[2022-02-10 09:31] LABS: BASO # 0.1 10*3/uL (0.0-0.1); BASO % 0.7 % (0.0-1.0); EOS # 0.8 10*3/uL (0.0-0.4); EOS % 10.9 % (1.0-4.0); HEMATOCRIT 30.4 % (42.0-52.0); LYMPH # 1.3 10*3/uL (1.3-4.4); LYMPH % 19.5 % (27.0-41.0); MEAN CELL VOLUME 96.2 fl (80.0-94.0); MEAN CORPUSCULAR HGB 30.4 pg (27.0-31.0); MEAN CORPUSCULAR HGB CONC 31.6 g/dl (33.0-37.0); MEAN PLATELET VOLUME 9.9 fl (9.6-12.3); MONO # 0.5 10*3/uL (0.1-1.0); MONO % 7.9 % (3.0-9.0); NEUT # 4.2 10*3/uL (2.3-7.9); NEUT % 60.7 % (47.0-73.0); PLATELET COUNT AUTOMATED 173 10*3/uL (130-400); RED BLOOD COUNT 3.16 10*6/uL (4.50-5.90); RED CELL DISTRI WIDTH 13.5 % (0-14.5); WHITE BLOOD COUNT 6.9 10*3/uL (4.8-10.8)
[2022-02-10 09:37] LABS: BILIRUBIN Negative (Negative); BLOOD 1+ (Negative); CLARITY Turbid (Clear); COLOR Yellow (Yellow); GLUCOSE Negative (Negative); KETONE Negative (Negative); LEUKO ESTERASE 3+ (Negative); NITRITE Negative (Negative); UROBILINOGEN 0.2 E.U./dl (0.0-1.0)
[2022-02-10 09:46] LABS: CREATININE 2.93 mg/dL (0.70-1.30); POTASSIUM 3.9 mmol/L (3.5-5.1)
[2022-02-10 09:53] LABS: WBC TNTC wbc/hpf (0-5)
[2022-02-10 10:03] LABS: URINE CREATININE RANDOM 38.6 mg/dL
[2022-02-10 10:22] LABS: FERRITIN 248.6 ng/mL (22.0-322.0); VITAMIN D, 25-HYDROXY 37.7 ng/mL (30-100)
== END | disposition home or self-care (01) ==
LOC: LAB 08:30
PROVIDERS: ATTEND Internal Medicine Nephrology
DX: N18.30 Chronic kidney disease, stage 3 unspecified (principal); N25.81 Secondary hyperparathyroidism of renal origin; Z79.899 Other long term (current) drug therapy; D63.1 Anemia in chronic kidney disease

== ENCOUNTER → 2022-08-10 | Outpatient (CLI) | payer MEDICARE ==
[2022-08-10 10:31] LABS: BASO # 0.1 10*3/uL (0.0-0.1); BASO % 0.5 % (0.0-1.0); BILIRUBIN Negative (Negative); BLOOD 2+ (Negative); CLARITY Turbid (Clear); COLOR Yellow (Yellow); EOS # 0.7 10*3/uL (0.0-0.4); EOS % 6.9 % (1.0-4.0); GLUCOSE Negative (Negative); HEMATOCRIT 29.4 % (42.0-52.0); KETONE Negative (Negative); LEUKO ESTERASE 3+ (Negative); LYMPH # 1.4 10*3/uL (1.3-4.4); LYMPH % 14.3 % (27.0-41.0); MEAN CELL VOLUME 102.1 fl (80.0-94.0); MEAN CORPUSCULAR HGB 31.9 pg (27.0-31.0); MEAN CORPUSCULAR HGB CONC 31.3 g/dl (33.0-37.0); MEAN PLATELET VOLUME 9.6 fl (9.6-12.3); MONO # 0.7 10*3/uL (0.1-1.0); MONO % 7.1 % (3.0-9.0); NEUT # 6.8 10*3/uL (2.3-7.9); NEUT % 70.8 % (47.0-73.0); NITRITE Negative (Negative); PH 5.5 (4.5-8.0); PLATELET COUNT AUTOMATED 215 10*3/uL (130-400); RED BLOOD COUNT 2.88 10*6/uL (4.50-5.90); RED CELL DISTRI WIDTH 14.3 % (0-14.5); UROBILINOGEN 0.2 E.U./dl (0.0-1.0); WHITE BLOOD COUNT 9.6 10*3/uL (4.8-10.8)
[2022-08-10 10:45] LABS: BACTERIA 4+; WBC TNTC wbc/hpf (0-5)
[2022-08-10 10:49] LABS: CREATININE 4.27 mg/dL (0.70-1.30); CREATININE 4.32 mg/dL (0.70-1.30); POTASSIUM 5.4 mmol/L (3.5-5.1); TOTAL PROTEIN 7.8 gm/dL (6.4-8.2)
[2022-08-10 11:04] LABS: URINE CREATININE RANDOM 27.8 mg/dL
[2022-08-10 12:04] LABS: VITAMIN D, 25-HYDROXY 57.7 ng/mL (30-100)
== END | disposition home or self-care (01) ==
LOC: LAB 09:56
PROVIDERS: Internal Medicine; ATTEND Internal Medicine Nephrology
DX: N18.4 Chronic kidney disease, stage 4 (severe) (principal); D63.1 Anemia in chronic kidney disease; E78.2 Mixed hyperlipidemia; N25.81 Secondary hyperparathyroidism of renal origin; E03.9 Hypothyroidism, unspecified; Z79.899 Other long term (current) drug therapy

== ENCOUNTER 2022-08-24 15:52 | Emergency (ER) | payer MEDICARE ==
[~2022-08-24] VITALS: Wt 94.3 kg
[~2022-08-24 15:52] MED LIST changes: +TAMIFLU 75MG CA75 MG PO; +TAMIFLU30 MG PO
== END 2022-08-24 19:26 ==
LOC: ED 15:52
DX: I46.9 Cardiac arrest, cause unspecified (principal); Z87.891 Personal history of nicotine dependence; Z95.1 Presence of aortocoronary bypass graft; Z79.899 Other long term (current) drug therapy; Z88.6 Allergy status to analgesic agent